=== PATIENT | female | born 1955 | race Caucasian/White ===

== ENCOUNTER 2022-05-08 18:17 | Inpatient (IN) | payer MEDICARE ==
[2022-05-08 18:48] LABS: Actual Bicarbonate (HCO3v) 21 mEq/L (22-28); Base Excess -1.6 mEq/L (-2 - +2); Calcium, Ionized (venous) 1.15 mmol/L (1.16-1.32); Chloride (VBG) 100 mmol/L (98-106); Hemoglobin (Hb) 12.1 g/dL (11.7-16.1); Potassium (VBG) 4.12 mmol/L (3.70-5.30); Puncture Site Other Site; RapidComm Collect By Lab; Sodium 134.4 mmol/L (133-146); pH (venous) 7.46 (7.32-7.43)
[2022-05-08 18:59] LABS: Anion Gap 19 mmol/L (10-20); BUN (Urea Nitrogen) 20 mg/dL (9.8-20.1); Calc. Creatinine Clearance 0 mL/min (70-130); Calcium 10.2 mg/dL (7.8-10.44); Carbon Dioxide 18 mmol/L (23-31); Chloride 102 mmol/L (98-107); Estimated GFR 52; Glucose 315 mg/dL (80-115); Potassium 4.1 mmol/L (3.5-5.1); Sodium 135 mmol/L (136-145)
[2022-05-08] MEDS ORDERED: Insulin Regular 300 UNITS/3 ML VIAL ONE (19:21)
[2022-05-08] MEDS ORDERED: Calcium Carbonate 500 MG ChewTAB PO PRN (20:18)
[2022-05-08] MEDS ORDERED: Acetaminophen 325 MG TAB PO PRN (20:18)
[2022-05-08] MEDS ORDERED: Dextrose 50% Abboject 50 ML SYRINGE SLOW IVP PRN (20:18)
[2022-05-08] MEDS ORDERED: Ondansetron PF 4 MG/2 ML Vial IVP PRN (20:18)
[2022-05-08] MEDS ORDERED: HYDROcodone/Acetaminophen 5/325 mg Tablet PO PRN (20:18)
[2022-05-08] MEDS ORDERED: Dextrose 5% in Water 1,000 ML IV PRN (20:18)
[2022-05-08] MEDS ORDERED: Senokot S 8.6-50 MG TAB PO PRN (20:18)
[2022-05-08] MEDS ORDERED: Guaifenesin DM 100-10/5 ML UDCUP PO PRN (20:18)
[2022-05-08] MEDS ORDERED: Lactated Ringer's 1,000 ML IV SCH (20:30)
[2022-05-08 21:38] LABS: Lactic Acid 1.2 mmol/L (0.5-2.2)
[2022-05-08] MEDS ORDERED: Carvedilol 12.5 MG TAB PO SCH (22:00)
[2022-05-08] MEDS ORDERED: Lantus 1000 UNITS/10 ML VIAL SC SCH (22:00)
[2022-05-08] MEDS ORDERED: Famotidine/PF 20 mg/2ml Vial SLOW IVP SCH (22:00)
[2022-05-08] MEDS ORDERED: Famotidine/PF 20 mg/2ml Vial ONE (22:04)
[2022-05-08] MEDS ORDERED: Carvedilol 12.5 MG TAB ONE (22:05)
[2022-05-09 01:54] VITALS: BMI 24.3
[2022-05-09 03:23] LABS: SARS-CoV-2 NAA Rapid Test Not Detected (NotDetected)
[2022-05-09 03:45] LABS: Anion Gap 17 mmol/L (10-20); BUN (Urea Nitrogen) 17 mg/dL (9.8-20.1); Calc. Creatinine Clearance 79 mL/min (70-130); Carbon Dioxide 21 mmol/L (23-31); Chloride 103 mmol/L (98-107); Estimated GFR 65; Glucose 202 mg/dL (80-115); Sodium 137 mmol/L (136-145)
[2022-05-09] MEDS: HumaLOG 300 UNITS/3 ML VIAL SC PRN ×2 (06:09→21:07)
[2022-05-09] MEDS ORDERED: Carvedilol 12.5 MG TAB ONE (07:18)
[2022-05-09] MEDS: Carvedilol 12.5 MG TAB PO SCH ×2 (07:22→17:09)
[2022-05-09] MEDS ORDERED: Aspirin Chewable 81 MG TAB ONE (08:54)
[2022-05-09] MEDS ORDERED: Lisinopril 10 MG TAB ONE (08:55)
[2022-05-09] MEDS: Lisinopril 10 MG TAB PO SCH (09:03)
[2022-05-09] MEDS: Rosuvastatin 20 MG TAB PO SCH (09:03)
[2022-05-09] MEDS: Lantus 1000 UNITS/10 ML VIAL SC SCH (09:03)
[2022-05-09] MEDS: Aspirin Chewable 81 MG TAB PO SCH (09:03)
[2022-05-09] MEDS: valACYclovir 500 MG TAB PO SCH (09:04)
[2022-05-09] MEDS: Sertraline 100 MG TAB PO SCH (09:04)
[2022-05-09 09:20] LABS: ALT (SGPT) 11 U/L (8-55); AST (SGOT) 11 U/L (5-34); Albumin 3.6 g/dL (3.4-4.8); Alkaline Phosphatase 111 U/L (40-110); Bilirubin, Direct 0.2 mg/dL (0.1-0.3); Bilirubin, Total 0.7 mg/dL (0.2-1.2); Protein, Total 6.6 g/dL (5.8-8.1)
[2022-05-09 13:15] LABS: Hemoglobin A1c 13.1 % (4.0-6.0)
[2022-05-09] MEDS ORDERED: Lantus 1000 UNITS/10 ML VIAL SC SCH (21:00)
[2022-05-10 05:05] LABS: Anion Gap 16 mmol/L (10-20); BUN (Urea Nitrogen) 12 mg/dL (9.8-20.1); Calc. Creatinine Clearance 86 mL/min (70-130); Calcium 9.6 mg/dL (7.8-10.44); Carbon Dioxide 21 mmol/L (23-31); Chloride 103 mmol/L (98-107); Estimated GFR 72; Glucose 262 mg/dL (80-115); Potassium 3.8 mmol/L (3.5-5.1); Sodium 136 mmol/L (136-145)
[2022-05-10] MEDS: HumaLOG 300 UNITS/3 ML VIAL SC PRN ×2 (05:59→11:11)
[2022-05-10 08:58] VITALS: BP 156/75; TEMP 98.9
[2022-05-10] MEDS: Lantus 1000 UNITS/10 ML VIAL SC SCH (09:10)
[2022-05-10] MEDS: Aspirin Chewable 81 MG TAB PO SCH (09:12)
[2022-05-10] MEDS: Rosuvastatin 20 MG TAB PO SCH (09:12)
[2022-05-10] MEDS: Lisinopril 10 MG TAB PO SCH (09:13)
[2022-05-10] MEDS: Sertraline 100 MG TAB PO SCH (09:14)
[2022-05-10] MEDS: Carvedilol 12.5 MG TAB PO SCH (09:14)
[2022-05-10] MEDS: valACYclovir 500 MG TAB PO SCH (09:14)
== END 2022-05-10 11:33 | disposition home or self-care (01) | DRG 638 ==
LOC: CSHERS 18:17 → CSHERHOLD 21:34 → INTOOBSV 21:34 → CSHTELE 05-09 15:54 → OBSVTOIN 05-10 07:20
PROVIDERS: ADMIT Student in an Organized Health Care Education/Training Program; ATTEND Internal Medicine
DX: E11.00 Type 2 diabetes mellitus with hyperosmolarity without nonketotic hyperglycemic-hyperosmolar coma (NKHHC) (principal); E87.1 Hypo-osmolality and hyponatremia; N17.9 Acute kidney failure, unspecified; I10 Essential (primary) hypertension; I25.10 Atherosclerotic heart disease of native coronary artery without angina pectoris; E11.9 Type 2 diabetes mellitus without complications; F43.10 Post-traumatic stress disorder, unspecified; E86.0 Dehydration; Z20.822 Contact with and (suspected) exposure to COVID-19; F32.A Depression, unspecified; E78.2 Mixed hyperlipidemia; Z79.4 Long term (current) use of insulin; Z79.84 Long term (current) use of oral hypoglycemic drugs; Z79.82 Long term (current) use of aspirin; Z79.899 Other long term (current) drug therapy; Z86.73 Personal history of transient ischemic attack (TIA), and cerebral infarction without residual deficits; Z90.49 Acquired absence of other specified parts of digestive tract; Z98.890 Other specified postprocedural states
CPT/HCPCS: 36415; 36416; 80048; 80076; 82805; 83036; 83605; 83930; 93005; 96372; 96374; G0378; J1650; J1815; J7120; S0028

== ENCOUNTER 2022-10-16 11:56 | Emergency (ER) | payer MEDICARE ==
[2022-10-16 15:31] LABS: #Eosinphils 0.1 10x3/uL (0.0-0.5); #Monocytes 0.3 10x3/uL (0.0-1.1); #Neutrophils 4.3 10x3/uL (1.5-8.4); %Basophils 0.6 % (0.0-2.0); %Eosinophils 1.1 % (0.0-6.0); %Lymphocytes 31.7 % (18.0-47.0); %Monocytes 4.9 % (0.0-10.0); %Neutrophils 61.4 % (40.0-75.0); Hematocrit 25.1 % (34.9-44.5); Hemoglobin 7.3 g/dL (12.0-15.5); Mean Corpuscular HGB CONC 29.1 g/dL (32.0-36.0); Mean Corpuscular Volume 82.6 fl (81.6-98.3); Mean Platelet Volume 9.6 fl (7.4-10.4); Platelet Count 332 10x3/uL (150-450); RBC Distribution Width 15.7 % (11.5-14.5); Red Blood Cell (RBC) Count 3.04 10x6/uL (3.90-5.03)
[2022-10-16] MEDS ORDERED: diphenhydrAMINE 25 MG CAP ONE (15:38)
[2022-10-16] MEDS ORDERED: Lidocaine/Transparent Dressing 1 EACH KIT ONE (15:39)
[2022-10-16] MEDS ORDERED: traMADol HCl 50 MG TAB ONE (15:39)
[2022-10-16 15:50] LABS: ALT (SGPT) 8 U/L (8-55); AST (SGOT) 13 U/L (5-34); Albumin 3.5 g/dL (3.4-4.8); Alkaline Phosphatase 102 U/L (40-110); Anion Gap 15 mmol/L (10-20); BUN (Urea Nitrogen) 10 mg/dL (9.8-20.1); Bilirubin, Total 0.4 mg/dL (0.2-1.2); Calc. Creatinine Clearance 0 mL/min (70-130); Carbon Dioxide 24 mmol/L (23-31); Chloride 109 mmol/L (98-107); Estimated GFR 83; Globulin 2.8 g/dL (2.4-3.5); Glucose 131 mg/dL (80-115); Potassium 3.7 mmol/L (3.5-5.1); Protein, Total 6.3 g/dL (5.8-8.1); Sodium 144 mmol/L (136-145)
[2022-10-16 15:50] LABS: Bilirubin Neg (Negative); Blood, Urine 25 (Negative); Clarity Clear (Clear); Glucose, Urine (Dipstick) 50 mg/dL (Negative); Ketone, Urine Negative (Negative); Leukocyte 500 (Negative); Nitrite Negative (Negative); Protein, Urine (Dipstick) Negative (Neg-Trace); Urobilinogen Normal mg/dL (Less than 2)
[2022-10-16 16:05] LABS: RBC/HPF 0-3 HPF (0-3)
[2022-10-16 16:07] LABS: Bacteria/HPF Rare-Few HPF (None Seen); CAUTI Indications for Culture Dysuria,urgency,freq; Squamous Epithelial None Seen HPF (0-3)
[2022-10-16 16:09] LABS: Urine Culture Reflex No No
[2022-10-16] MEDS ORDERED: hydrOXYzine 25 MG TAB ONE (17:25)
[2022-10-16] MEDS ORDERED: HYDROcodone/Acetaminophen 5/325 mg Tablet ONE (17:26)
[2022-10-17 00:48] LABS: Chlamydia by PCR, Vaginal Swab Not Detected (NotDetected); GC by PCR, Vaginal Swab Not Detected (NotDetected)
== END 2022-10-16 18:01 | disposition home or self-care (01) ==
LOC: CSHERS 11:56
DX: N36.8 Other specified disorders of urethra (principal); D64.9 Anemia, unspecified; N95.2 Postmenopausal atrophic vaginitis; E11.9 Type 2 diabetes mellitus without complications; I10 Essential (primary) hypertension; Z79.899 Other long term (current) drug therapy; Z79.4 Long term (current) use of insulin
CPT/HCPCS: 80053; 81001; 83605; 85025; 87480; 87491; 87510; 87591; 87660; 99283

== ENCOUNTER 2022-11-01 14:24 | Emergency (ER) | payer MEDICARE ==
[2022-11-01] MEDS ORDERED: Iopamidol 300 61% 100 ML VIAL FS ONE (15:28)
[2022-11-01] MEDS ORDERED: Morphine 4 MG/ML VIAL ONE ×2 (16:03→19:50)
[2022-11-01 16:21] LABS: #Basophils 0.1 10x3/uL (0.0-0.2); #Eosinphils 0.2 10x3/uL (0.0-0.5); #Monocytes 0.3 10x3/uL (0.0-1.1); #Neutrophils 5.8 10x3/uL (1.5-8.4); %Basophils 0.8 % (0.0-2.0); %Eosinophils 1.8 % (0.0-6.0); %Lymphocytes 28.4 % (18.0-47.0); %Monocytes 3.4 % (0.0-10.0); %Neutrophils 65.3 % (40.0-75.0); Hematocrit 26.9 % (34.9-44.5); Hemoglobin 7.8 g/dL (12.0-15.5); Mean Corpuscular Hemoglobin 23.7 pg (27.0-33.0); Mean Corpuscular Volume 81.8 fl (81.6-98.3); Mean Platelet Volume 9.6 fl (7.4-10.4); Platelet Count 387 10x3/uL (150-450); RBC Distribution Width 15.9 % (11.5-14.5); Red Blood Cell (RBC) Count 3.29 10x6/uL (3.90-5.03); White Blood Cell (WBC) Count 8.8 10x3/uL (3.5-10.5)
[2022-11-01 16:22] LABS: Bilirubin Neg (Negative); Blood, Urine 50 (Negative); Clarity Clear (Clear); Glucose, Urine (Dipstick) Normal (Negative); Ketone, Urine Negative (Negative); Leukocyte 500 (Negative); Nitrite Negative (Negative); Protein, Urine (Dipstick) 15 mg/dl (Neg-Trace); Urobilinogen Normal mg/dL (Less than 2)
[2022-11-01 16:34] LABS: ALT (SGPT) 10 U/L (8-55); AST (SGOT) 15 U/L (5-34); Albumin 3.9 g/dL (3.4-4.8); Alkaline Phosphatase 105 U/L (40-110); Anion Gap 14 mmol/L (10-20); BUN (Urea Nitrogen) 11 mg/dL (9.8-20.1); Bilirubin, Total 0.4 mg/dL (0.2-1.2); Calc. Creatinine Clearance 0 mL/min (70-130); Calcium 9.6 mg/dL (7.8-10.44); Carbon Dioxide 21 mmol/L (23-31); Chloride 108 mmol/L (98-107); Estimated GFR 61; Globulin 3.3 g/dL (2.4-3.5); Glucose 212 mg/dL (80-115); Lipase 13 U/L (8-78); Potassium 3.7 mmol/L (3.5-5.1); Protein, Total 7.2 g/dL (5.8-8.1); Sodium 139 mmol/L (136-145)
[2022-11-01 16:37] LABS: CAUTI Indications for Culture Pelvic or flank pain; Squamous Epithelial 0-3 HPF (0-3); Transitional Epithelial 0-3 HPF (None Seen)
[2022-11-01 16:38] LABS: Bacteria/HPF Rare-Few HPF (None Seen)
[2022-11-01 16:39] LABS: Urine Culture Reflex Yes Yes
== END 2022-11-01 22:38 | disposition home or self-care (01) ==
LOC: CSHERS 14:24
DX: R10.2 Pelvic and perineal pain (principal); I10 Essential (primary) hypertension; E11.9 Type 2 diabetes mellitus without complications; Z79.4 Long term (current) use of insulin
CPT/HCPCS: 74177; 76857; 80053; 81001; 83690; 85025; 87086; 87480; 87510; 87660; 96374; 96376; J2270; Q9967

== ENCOUNTER 2022-11-06 10:50 | Outpatient (CLI) | payer MEDICARE, OTHER | END 2022-11-06 10:51 | disposition home or self-care (01) | LOC: CSHLAB 10:50 | PROVIDERS: ATTEND Student in an Organized Health Care Education/Training Program | DX: Z01.818 Encounter for other preprocedural examination (principal); R10.2 Pelvic and perineal pain | CPT/HCPCS: 93005; 93010 ==

== ENCOUNTER 2022-11-07 12:47 | Day surgery (SDC) | payer MEDICARE ==
[2022-11-06 11:57] VITALS: BMI 38.8
[2022-11-06 12:41] LABS: Hematocrit 27.7 % (34.9-44.5); Hemoglobin 7.8 g/dL (12.0-15.5); Mean Corpuscular HGB CONC 28.2 g/dL (32.0-36.0); Mean Corpuscular Hemoglobin 23.4 pg (27.0-33.0); Mean Corpuscular Volume 83.2 fl (81.6-98.3); Mean Platelet Volume 9.3 fl (7.4-10.4); Platelet Count 375 10x3/uL (150-450); RBC Distribution Width 16.8 % (11.5-14.5); Red Blood Cell (RBC) Count 3.33 10x6/uL (3.90-5.03); White Blood Cell (WBC) Count 7.9 10x3/uL (3.5-10.5)
[2022-11-06 13:09] LABS: Anion Gap 16 mmol/L (10-20); BUN (Urea Nitrogen) 12 mg/dL (9.8-20.1); Calc. Creatinine Clearance 0 mL/min (70-130); Carbon Dioxide 20 mmol/L (23-31); Chloride 105 mmol/L (98-107); Estimated GFR 63; Glucose 275 mg/dL (80-115); Potassium 4.4 mmol/L (3.5-5.1); Sodium 137 mmol/L (136-145)
[2022-11-07] MEDS ORDERED: Gabapentin 300 MG CAP ONE (13:06)
[2022-11-07] MEDS ORDERED: Famotidine/PF 20 mg/2ml Vial ONE (13:06)
[2022-11-07] MEDS ORDERED: CeleCOXIB 100 MG CAP ONE (13:06)
[2022-11-07] MEDS ORDERED: CEFAZOLIN 2 GM VIAL ONE (14:47)
[2022-11-07] MEDS ORDERED: Fentanyl 250 MCG/5 ML VIAL ONE (14:59)
[2022-11-07] MEDS ORDERED: diphenhydrAMINE 50 MG/ML VIAL ONE (15:17)
[2022-11-07] MEDS ORDERED: Ketorolac Tromethamine 30 MG/ML VIAL ONE (15:17)
[2022-11-07] MEDS ORDERED: Ondansetron PF 4 MG/2 ML Vial ONE (15:17)
[2022-11-07] MEDS ORDERED: oxyCODONE 5 MG TAB ONE (16:32)
== END 2022-11-07 17:25 | disposition home or self-care (01) ==
LOC: CSHSDC 12:47
PROVIDERS: ATTEND Student in an Organized Health Care Education/Training Program
PROC: 0UBM0ZX Excision of Vulva, Open Approach, Diagnostic (ICD-10-PCS; principal; 2022-11-07)
DX: C51.9 Malignant neoplasm of vulva, unspecified (principal); K64.4 Residual hemorrhoidal skin tags; E11.9 Type 2 diabetes mellitus without complications; I10 Essential (primary) hypertension; D64.9 Anemia, unspecified; Z79.899 Other long term (current) drug therapy; Z79.82 Long term (current) use of aspirin; Z01.818 Encounter for other preprocedural examination; R10.2 Pelvic and perineal pain
CPT/HCPCS: 80048; 85027; 86850; 86900; 86901; 88305; 88341; 88342; 88360; 93005; 93010; J1200; J1885; J2405; J3010; S0028